=== PATIENT | female | born 1955 | race African-American/Black ===

== ENCOUNTER 2019-06-01 14:45 | Inpatient (IN) | payer OTHER ==
[2019-06-01 19:06] VITALS: BMI 34.2
--- NOTE | 2019-06-01 20:28 | HP ---
CIWA Score - Admission Criteria OASAS Guidelines: Admission for Medically Managed Detox: Requires at least one of the followin. CIWA greater than 12 2. Seizures within the past 24 hours 3. Delirium tremens within the past 24 hours 4. Hallucinations within the past 24 hours 5. Acute intervention needed for co occurring medical disorder 6. Acute intervention needed for co occurring psychiatric disorder 7. Severe withdrawal that cannot be handled at a lower level of care (continued vomiting, continued diarrhea, abnormal vital signs) requiring intravenous medication and/or fluids 8. Admission ROS S - HPI Chief Complaint: Seeking admission to Rehab Allergies/Adverse Reactions: Allergies Allergy/AdvReac Type Severity Reaction Status Date / Time butorphanol AdvReac Verified 06/01/19 18:51 History of Present Illness: 64 years old female is seeking admission to Rehab. Patient reports that she was at [facility] for 33 days for manic depression and was transferred to [facility] for Rehab. She denies suicidal and homicidal ideation at this time. She has left ear hearing loss and reports medical history of Hep. C, anemia, Seizure, Sickle cell trait and Diabetes Type 2. Her drug screen result was all negative. Exam Limitations: No Limitations - Ebola screening Have you traveled outside of the country in the last 21 days: No Have you had contact with anyone from an Ebola affected area: No Do you have a fever: No - Review of Systems Constitutional: No Symptoms Reported EENT: reports: No Symptoms Reported Respiratory: reports: No Symptoms reported Cardiac: reports: No Symptoms Reported GI: reports: No Symptoms Reported : reports: No Symptoms Reported Musculoskeletal: reports: No Symptoms Reported Integumentary: reports: No Symptoms Reported Neuro: reports: No Symptoms reported Endocrine: reports: No Symptoms Reported Hematology: reports: No Symptoms Reported Psychiatric: reports: No Sypmtoms Reported, Mood/Affect Appropiate Other Systems: Reviewed and Negative Patient History - Patient Medical History Hx Anemia: Yes (Not on medication) Hx Asthma: No Hx Chronic Obstructive Pulmonary Disease (COPD): No Hx Cancer: No Hx Cardiac Disorders: No Hx Congestive Heart Failure: No Hx Hypertension: No Hx Hypercholesterolemia: No HX Cerebrovascular Accident: No Hx Seizures: Yes (Alcohol related seizure. Not on medication) Hx Dementia: No Hx Diabetes: Yes Hx Gastrointestinal Disorders: No Hx Liver Disease: Yes (Hep C) Hx Genitourinary Disorders: No Hx Sexually Transmitted Disorders: No Hx Renal Disease (ESRD): No Hx Thyroid Disease: No Hx Human Immunodeficiency Virus (HIV): No Hx Hepatitis C: Yes (Not on medication) Hx Depression: No Hx Suicide Attempt: No (Denies suicidal ideation at this time) Hx Bipolar Disorder: No Hx Schizophrenia: No Other Medical History: Sickle cell trait, - Patient Surgical History Past Surgical History: Yes Hx Neurologic Surgery: No Hx Cataract Extraction: No Hx Cardiac Surgery: No Hx Lung Surgery: No Hx Breast Surgery: No Hx Breast Biopsy: No Hx Abdominal Surgery: No Hx Appendectomy: No Hx Cholecystectomy: No Hx Genitourinary Surgery: No Hx Section: No Hx Orthopedic Surgery: Yes (Left Elbow surgery 20 years ago) Hx Hysterectomy: No Anesthesia Reaction: No - PPD History Previous Implant?: Yes Documented Results: Negative w/o proof Implanted On Prior [facility] Admission?: No PPD to be Administered?: Yes - Reproductive History Patient is a Female of Child Bearing Age (11 -55 yrs old): Yes LMP comment: Menopausal Patient : No - Smoking Cessation Smoking history: Former smoker Have you smoked in the past 12 months: Yes Aproximately how many cigarettes per day: 40 Hx Chewing Tobacco Use: No Initiated information on smoking cessation: Yes 'Breaking Loose' booklet given: 06/01/19 - Substance & Tx. History Hx Alcohol Use: Yes Hx Substance Use: Yes Substance Use Type: Alcohol, Cocaine, Heroin, Marijuana Hx Substance Use Treatment: Yes ([facility], [facility]) - Substances abused Heroin Substance route: Inhalation Frequency: Daily Amount used: ' 2 bottles' as much as I could get' Age of first use: 14 Date of last use: 04/27/19 Cocaine Substance route: Smoking Frequency: 3-6 times per week Amount used: 2 grams Age of first use: 14 Date of last use: 04/27/19 Marijuana/Hashish Substance route: Smoking Frequency: Daily Amount used: 2 blunts Age of first use: 14 Date of last use: 04/27/19 Alcohol Substance route: Oral Frequency: Daily Amount used: 2 pints of vodka Age of first use: 14 Date of last use: 04/27/19 Admission Physical Exam BHS - Vital Signs Vital Signs: Vital Signs - 24 hr 06/01/19 18:47 Temperature 97.5 F L Pulse Rate 73 Respiratory 16 Rate Blood Pressure 128/89 - Physical General Appearance: Yes: Within Normal Limits HEENTM: Yes: Normal ENT Inspection, Normal Voice, JOSY Respiratory: Yes: Lungs Clear, Normal Breath Sounds, No Respiratory Distress Neck: Yes: Within Normal Limits Breast: Yes: Breast Exam Deferred Cardiology: Yes: Within Normal Limits, Regular Rhythm, Regular Rate Abdominal: Yes: Normal Bowel Sounds, Soft Genitourinary: Yes: Within Normal Limits Back: Yes: Normal Inspection Extremities: Yes: Normal Inspection, Normal Range of Motion Neurological: Yes: Within Normal Limits, Alert, Normal Mood/Affect Integumentary: Yes: Warm Lymphatic: Yes: Within Normal Limits - Diagnostic (1) Heroin dependence Current Visit: Yes Status: Chronic (2) Alcohol dependence Current Visit: Yes Status: Chronic Qualifiers: Substance use status: uncomplicated Qualified Code(s): F10.20 - Alcohol dependence, uncomplicated (3) Marijuana dependence Current Visit: Yes Status: Chronic (4) Cocaine dependence Current Visit: Yes Status: Chronic Qualifiers: Substance use status: uncomplicated Qualified Code(s): F14.20 - Cocaine dependence, uncomplicated (5) Hep C w/o coma, chronic Current Visit: Yes Status: Chronic (6) Sickle cell trait Current Visit: Yes Status: Chronic (7) DM (diabetes mellitus) Current Visit: Yes Status: Chronic Qualifiers: Diabetes mellitus type: type 2 (8) Alcohol related seizure Current Visit: Yes Status: Chronic (9) Anemia Current Visit: Yes Status: Chronic Qualifiers: Anemia type: iron deficiency (10) Left ear hearing loss Current Visit: Yes Status: Acute Cleared for Admission [facility] - Detox or Rehab [facility] Level of Care: Observation Bed Claeared for Rehab Admission: Yes Breathalyzer - Breathalyzer Breathalyzer: 0 Urine Drug Screen - Test Device Lot number: [id number] Expiration date: 01/19/21 - Control Is test valid?: Yes - Results Drug screen NEGATIVE: Yes Inpatient Rehab Admission - Rehab Decision to Admit Inpatient rehab admission?: Yes - Initial Determination Are CD services needed?: No Free of communicable disease: Yes Not in need of hospitalization: Yes - Rehab Admission Criteria Previous failed treatment: Yes Poor recovery environment: Yes Comorbidities: Yes Lacks judgement: No Patient is meeting Inpatient Rehab admission criteria:: Yes
[2019-06-01] MEDS ORDERED: guaiFENesin 200 MG/10 ML 10 ML UNIT-DOSE CUPS PO PRN (20:47)
[2019-06-01] MEDS ORDERED: P-EPHED 60MG/TRIPROLIDI 2.5MG TABLET PO PRN (20:47)
[2019-06-01] MEDS ORDERED: MAGNESIUM CITRATE 300 ML BOTTLE PO PRN (20:47)
[2019-06-01] MEDS ORDERED: MAG HYDROX/AL HYDROX/SIMETH 30 ML UNIT-DOSE CUP PO PRN (20:47)
[2019-06-01] MEDS ORDERED: ACETAMINOPHEN 325 MG TABLET (FP) PO PRN (20:47)
[2019-06-01] MEDS ORDERED: NICOTINE POLACRILEX 2 MG GUM BC PRN (20:47)
[2019-06-01] MEDS ORDERED: MENTHOL/PHENOL 1 EACH UD MM PRN (20:47)
[2019-06-01] MEDS ORDERED: MAGNESIUM HYDROX 2400MG/30ML ORAL SUSPENSION 30 ML CUP PO PRN (20:47)
[2019-06-01] MEDS ORDERED: IBUPROFEN 400 MG TABLET (FP) PO PRN (20:47)
[2019-06-01] MEDS ORDERED: LOPERAMIDE HCL 2 MG CAPSULE PO PRN (20:47)
[2019-06-01] MEDS ORDERED: MELATONIN 5 MG TABLETS PO PRN (22:00)
[2019-06-01] MEDS: THIAMINE HCL 100 MG TABLET (FP) PO SCH (22:49)
[2019-06-02] MEDS: PRENATAL VITAMINS W/ FOLIC ACID TABLET (FP) PO SCH (10:10)
[2019-06-02] MEDS: NICOTINE 14 MG/24 HOURS TOPICAL PATCH TD SCH (10:11)
[2019-06-02 13:41] LABS: EPI CELLS 0.5 /HPF (0-5/HPF); HYALINE CASTS 0 /lpf (0-8); URINE APPEARANCE CLEAR; URINE BACTERIA 9.6 /hpf (NEGATIVE); URINE BILIRUBIN NEGATIVE (NEGATIVE); URINE COLOR YELLOW; URINE GLUCOSE (UA) NEGATIVE (NEGATIVE); URINE KETONE NEGATIVE (NEGATIVE); URINE LEUK ESTERASE 1+ (NEGATIVE); URINE NITRITE NEGATIVE (NEGATIVE); URINE PROTEIN NEGATIVE (NEGATIVE); URINE RBC 1 /hpf (0-4); URINE UROBILINOGEN 0.2 mg/dL (0.2-1.0); URINE WBC 2 /hpf (0-5)
--- NOTE | 2019-06-02 18:08 | CONSULT ---
[facility] Psychiatric Consult - Data Date of interview: 06/02/19 Admission source: Transfer from [facility]. Identifying data: First [facility] visit and direct admission to [address] for this 64 y/o AA female, referred by [facility] at [place] (retained for 33 days on the psychiatric inpatient service) for rehabilitative care aiming at the preservation of sobriety (TISHA issues : opioid , alcohol, cannabis, cocaine, nicotine) + management of co-morbid schizoaffective disorder. Patient is single, a mother of one, homeless, unemployed and supported on SSI benefits. Substance Abuse History: Discussed in this session. Patient's information is concordant with current [facility] report as follows : Smoking history: Former smoker. Have you smoked in the past 12 months: Yes. Aproximately how many cigarettes per day: 40. Hx Chewing Tobacco Use: No. Initiated information on smoking cessation: Yes. 'Breaking Loose' booklet given: 06/01/19. - Substance & Tx. History. Hx Alcohol Use: Yes. Hx Substance Use: Yes. Substance Use Type: Alcohol, Cocaine, Heroin, Marijuana. Hx Substance Use Treatment: Yes ([facility], [facility]). - Substances abused. Heroin. Substance route: Inhalation. Frequency: Daily. Amount used: ' 2 bottles' as much as I could get'. Age of first use: 14. Date of last use: 04/27/19. Cocaine. Substance route: Smoking. Frequency: 3-6 times per week. Amount used: 2 grams. Age of first use: 14. Date of last use: 04/27/19. Marijuana/ Hashish. Substance route: Smoking. Frequency: Daily. Amount used: 2 blunts. Age of first use: 14. Date of last use: 04/27/19. Alcohol. Substance route : Oral. Frequency: Daily. Amount used: 2 pints of vodka. Age of first use: 14. Date of last use: 04/27/19 Medical History: Medical profile is remarkable for hepatits C, sickle cell trait , bronchial asthma, anemia, withdrawal-related seizures, hearing impediment ( left ear), diabetes mellitus and a distant history of orthosurgery (fracture of left elbow). Psychiatric History: Patient got just discharged from [facility] and directly transferred to [facility]. Ms Galvan endorses the diagnosis of Schizoaffective Disorder and current medications consisting of a regimen of seroquel 150 mg/hs + olanzapine 20 mg/bid + trazodone 200 mg/hs. Patient denies having prior contact with any psychiatric OPD care providers. " I get my medications from inpatient psychiatric wards." This is suggestive of a pattern of total disregard for OPD care and over-reliance on psychiatric inpatient services. Patient denies history of suicide attempts. Physical/Sexual Abuse/Trauma History: Not discussed in this session. Patient declines. Additional Comment: Drug screen is negative. Mental Status Exam - Mental Status Exam Alert and Oriented to: Time, Place, Person Cognitive Function: Good Patient Appearance: Well Groomed (obese, appearing stated age) Mood: Hopeful, Euthymic Affect: Appropriate, Normal Range Patient Behavior: Appropriate (friendly), Cooperative Speech Pattern: Clear, Appropriate Voice Loudness: Normal Thought Process: Goal Oriented Thought Disorder: Not Present Hallucinations: Denies Suicidal Ideation: Denies Homicidal Ideation: Denies Insight/Judgement: Poor Sleep: Well (on trazodone and seroquel at bedtime) Appetite: Good Gait/Station: Normal Psychiatric Findings - Problem List ([place] 1, 2,3) (1) Alcohol dependence Current Visit: Yes Status: Chronic Qualifiers: Substance use status: uncomplicated Qualified Code(s): F10.20 - Alcohol dependence, uncomplicated (2) Cocaine dependence Current Visit: Yes Status: Chronic Qualifiers: Substance use status: uncomplicated Qualified Code(s): F14.20 - Cocaine dependence, uncomplicated (3) Heroin dependence Current Visit: Yes Status: Chronic (4) Marijuana dependence Current Visit: Yes Status: Chronic (5) Nicotine dependence Current Visit: Yes Status: Chronic (6) Schizoaffective disorder Current Visit: Yes Status: Chronic (7) Insomnia Current Visit: Yes Status: Chronic - Initial Treatment Plan Initial Treatment Plan: Psychiatric evaluation conducted with a nurse in attendance (patient gave verbal permission). Psychoeducation. Sleep hygiene. Support. Motivational counseling provided in this session. AA/NA meetings. Groups. Medications reconciled. As follows : seroquel 100 mg po hs + trazodone 50 mg po hs + olanzapine 10 mg po hs (dose will be upgraded in AM after verification with referring source). Side effects/benefits discussed with patient. Informed consent (verbal) secured. Case will be endorsed to covering psychiatrist in the morning (verification of medications). Observation.
[2019-06-02] MEDS: THIAMINE HCL 100 MG TABLET (FP) PO SCH (21:22)
[2019-06-02] MEDS ORDERED: QUEtiapine FUMARATE 100 MG TABLET (FP) PO SCH (22:00)
[2019-06-02] MEDS ORDERED: traZODone HCL 50 MG TABLET (FP) PO SCH (22:00)
--- NOTE | 2019-06-03 08:39 | EKG ---
Test Reason : Blood Pressure : / mmHG Vent. Rate : 066 BPM Atrial Rate : 066 BPM P-R Int : 192 ms QRS Dur : 084 ms QT Int : 432 ms P-R-T Axes : 062 039 056 degrees QTc Int : 452 ms NORMAL SINUS RHYTHM NORMAL ECG NO PREVIOUS ECGS AVAILABLE Confirmed by Akilah Lind ([id number]) on 06/03/2019 8:39:09 AM Referred By: MICHAEL KING Confirmed By:Akilah Lind
[2019-06-03] MEDS: PRENATAL VITAMINS W/ FOLIC ACID TABLET (FP) PO SCH (10:07)
[2019-06-03] MEDS: NICOTINE 14 MG/24 HOURS TOPICAL PATCH TD SCH (10:07)
[2019-06-03 10:27] LABS: ALBUMIN 3.7 g/dl (3.4-5.0); BILIRUBIN,TOTAL 0.5 mg/dL (0.2-1); BLOOD UREA NITROGEN 20.5 mg/dL (7-18); CALCIUM 8.9 mg/dL (8.5-10.1); CREATININE 0.9 mg/dL (0.55-1.3); POTASSIUM 4.1 mmol/L (3.5-5.1); TOT PROT 7.3 g/dl (6.4-8.2)
[2019-06-03 10:29] LABS: HEMATOCRIT 36.7 % (32.4-45.2); HEMOGLOBIN 12.3 GM/dL (10.7-15.3); MCHC 33.5 g/dl (32.0-36.0); MEAN CELL VOLUME 89.5 fl (80-96); MEAN PLT VOLUME 8.1 fl (7.5-11.1); PLATELET COUNT 160 K/MM3 (134-434); RDW 15.2 % (11.6-15.6); WHITE BLOOD COUNT 3.2 K/mm3 (4.0-10.0)
--- NOTE | 2019-06-03 15:41 | PN ---
Psychiatric Progress Note Vital Signs: Vital Signs Period Temp Pulse Resp BP Sys/Ramírez Pulse Ox Last 24 Hr 97.8 F 75-85 - 99-115/68-78 Date of Session: 06/03/19 Chief Complaint:: Medication adjustment HPI: Patient admitted to for opioid, alcohol, cannabis, cocaine, nicotine dependence. ROS: Patient is coherent, alert + oriented X3. Current Medications: Active Medications Generic Name Dose Route Start Last Admin Trade Name Freq PRN Reason Stop Dose Admin Acetaminophen 650 mg 06/01/19 20:47 Tylenol - PO Q4H PRN FEVER Al Hydroxide/Mg Hydroxide 30 ml 06/01/19 20:47 Mylanta Oral Suspension - PO Q6H PRN DYSPEPSIA Eucalyptus/Menthol/Phenol/Sorbitol 1 each 06/01/19 20:47 Cepastat Lozenge - MM Q4H PRN SORE THROAT Guaifenesin 10 ml 06/01/19 20:47 Robitussin - PO Q6H PRN COUGH Ibuprofen 400 mg 06/01/19 20:47 Motrin - PO Q6H PRN Pain level 4-6 Loperamide HCl 4 mg 06/01/19 20:47 Imodium - PO Q6H PRN DIARRHEA Magnesium Citrate 300 ml 06/01/19 20:47 Citroma - PO Q48H PRN CONSTIPATION Magnesium Hydroxide 30 ml 06/01/19 20:47 Milk Of Magnesia - PO DAILY PRN CONSTIPATION Melatonin 5 mg 06/01/19 22:00 Melatonin PO HS PRN INSOMNIA Nicotine 14 mg 06/02/19 10:00 06/03/19 10:07 Nicoderm Patch - TD Not Given DAILY HELEN Nicotine Polacrilex 2 mg 06/01/19 20:47 Nicorette Gum - BC Q2H PRN NICOTINE REPLACEMENT RX Multivit/Folic Acid/Iron 1 tab 06/02/19 10:00 06/03/19 10:07 Vitamins (Sjr) - PO 1 tab DAILY HELEN Administration Pseudoephedrine/Triprolidine 1 combo 06/01/19 20:47 Actifed - PO TID PRN NASAL CONGESTION Quetiapine Fumarate 100 mg 06/02/19 22:00 06/02/19 21:23 Seroquel - PO 100 mg HS HELEN Administration Thiamine HCl 100 mg 06/01/19 22:00 06/02/19 21:22 Vitamin B1 - PO 100 mg HS HELEN Administration Trazodone HCl 50 mg 06/02/19 22:00 06/02/19 21:23 Desyrel - PO 50 mg HS HELEN Administration Medication(s) Change(s): Yes. Current Side Effect: No Lab tests ordered: No Lab tests reviewed: Yes Provider note:: Patient calm, cooperated, alert +oriented X3. Patient with a diagnosis of schizoaffective disorder who was directly transferred to [facility] from [facility] in [place]. Patient seen by Dr. Lala on and ordered Zyprexa 10mg + Seroquel 100mg + trazdone 50mg. As per Dr. Lala note, patient stated that her medication regiman consisted of Seroquel 100mg + zyprexa 20mg BID + trazodone 50mg HS. Supercharger Mechanic attempted to contact [facility] s pharmacy at [phone] but attempt was unsuccessful. Supercharger Mechanic then discussed case with Charge Nurse who provided patient with patient's medication list that was sent from [facility]. As per [facility] Medications profile report patient was seen by Dr. Daniel and was discharged with Wellbutrin 300mg XL + Trazodone 100mg HS + Olanzapine ODT 20mg . Supercharger Mechanic discussed medications changes with contract technical writer. Patient in agreement with contract technical writer. Patient reports stable mood and adeqate sleep last night. Patient denies auditory/visual , suicidal/homicidal ideation. Medications to be adjusted. Will d/c seroquel 100mg and trazodone 50mg HS. Will order Wellbutrin 300mg XL + Trazodone 100mg + Zyprexa 20mg HS. Total face to face time:: 30 Mental Status Exam - Mental Status Exam Alert and Oriented to: Time, Place, Person Cognitive Function: Good Patient Appearance: Well Groomed Mood: Euthymic Affect: Mood Congruent Patient Behavior: Cooperative Speech Pattern: Appropriate Voice Loudness: Normal Thought Process: Goal Oriented Thought Disorder: Not Present Hallucinations: Denies Suicidal Ideation: Denies Homicidal Ideation: Denies Insight/Judgement: Poor Sleep: Fair Appetite: Fair Muscle strength/Tone: Normal Gait/Station: Normal Psychiatric Treatment Plan - Problem List (1) Alcohol dependence Current Visit: Yes Qualifiers: Substance use status: uncomplicated Qualified Code(s): F10.20 - Alcohol dependence, uncomplicated (2) Cocaine dependence Current Visit: Yes Qualifiers: Substance use status: uncomplicated Qualified Code(s): F14.20 - Cocaine dependence, uncomplicated (3) Heroin dependence Current Visit: Yes (4) Insomnia Current Visit: Yes (5) Marijuana dependence Current Visit: Yes (6) Nicotine dependence Current Visit: Yes (7) Schizoaffective disorder Current Visit: Yes
[2019-06-03] MEDS: THIAMINE HCL 100 MG TABLET (FP) PO SCH (21:26)
[2019-06-03] MEDS: OLANZapine 10 MG TABLET PO SCH (21:27)
[2019-06-03] MEDS: traZODone HCL 100 MG TABLET (FP) PO SCH (21:27)
[2019-06-03] MEDS ORDERED: traZODone HCL 50 MG TABLET (FP) PO SCH (22:00)
[2019-06-03] MEDS ORDERED: OLANZapine 7.5 MG TABLET PO SCH (22:00)
[2019-06-04] MEDS: PRENATAL VITAMINS W/ FOLIC ACID TABLET (FP) PO SCH (10:13)
[2019-06-04] MEDS: NICOTINE 14 MG/24 HOURS TOPICAL PATCH TD SCH (10:13)
[2019-06-04] MEDS: traZODone HCL 100 MG TABLET (FP) PO SCH (21:12)
[2019-06-04] MEDS: THIAMINE HCL 100 MG TABLET (FP) PO SCH (21:12)
[2019-06-04] MEDS: OLANZapine 10 MG TABLET PO SCH (21:12)
[2019-06-05] MEDS: PRENATAL VITAMINS W/ FOLIC ACID TABLET (FP) PO SCH (09:32)
[2019-06-05] MEDS: NICOTINE 14 MG/24 HOURS TOPICAL PATCH TD SCH (09:32)
[2019-06-05] MEDS: OLANZapine 10 MG TABLET PO SCH (21:08)
[2019-06-05] MEDS: THIAMINE HCL 100 MG TABLET (FP) PO SCH (21:09)
[2019-06-05] MEDS: traZODone HCL 100 MG TABLET (FP) PO SCH (21:09)
[2019-06-06] MEDS: PRENATAL VITAMINS W/ FOLIC ACID TABLET (FP) PO SCH (09:50)
[2019-06-06] MEDS: NICOTINE 14 MG/24 HOURS TOPICAL PATCH TD SCH (09:51)
[2019-06-06] MEDS: THIAMINE HCL 100 MG TABLET (FP) PO SCH (21:36)
[2019-06-06] MEDS: traZODone HCL 100 MG TABLET (FP) PO SCH (21:36)
[2019-06-06] MEDS: OLANZapine 10 MG TABLET PO SCH (21:36)
[2019-06-07] MEDS: NICOTINE 14 MG/24 HOURS TOPICAL PATCH TD SCH (09:48)
[2019-06-07] MEDS: PRENATAL VITAMINS W/ FOLIC ACID TABLET (FP) PO SCH (09:48)
--- NOTE | 2019-06-07 14:36 | PN ---
[facility] Progress Note Note: Pt requesting to decrease BGM frequency to once a day. BGM does not appear to be out of control values. Pt reports she was on Glucophage twenty years ago but has not had any medication for diabetes since then. Pt reports daily blood sugar checks at home but not on med. Pt is not on diabetic medication on this admission. No meds posted on outside pharmacy site. Pt reports she has a PCP Dr. Bryon Guzmán at [place], [place]. Vital Signs 06/07/19 07:02 Temperature 97.8 F Pulse Rate 66 Respiratory 18 Rate Blood Pressure 134/86 Laboratory Tests 06/02/19 06/03/19 06/03/19 08:20 07:40 07:40 WBC RBC Hgb Hct MCV MCH MCHC RDW Plt Count MPV Sodium 140 Potassium 4.1 Chloride 108 H Carbon Dioxide 26 Anion Gap 6 L BUN 20.5 H Creatinine 0.9 Est GFR (CKD-EPI)AfAm 78.32 Est GFR (CKD-EPI)NonAf 67.57 POC Glucometer Random Glucose 140 H Calcium 8.9 Total Bilirubin 0.5 AST 35 ALT 53 Alkaline Phosphatase 66 Total Protein 7.3 Albumin 3.7 Urine Color Yellow Urine Appearance Clear Urine pH 6.0 Ur Specific [place] 1.017 Urine Protein Negative Urine Glucose (UA) Negative Urine Ketones Negative Urine Blood Negative Urine Nitrite Negative Urine Bilirubin Negative Urine Urobilinogen 0.2 Ur Leukocyte Esterase 1+ H Urine WBC (Auto) 2 Urine RBC (Auto) 1 Urine Casts (Auto) 0 U Epithel Cells (Auto) 0.5 Urine Bacteria (Auto) 9.6 RPR Titer Nonreactive 06/03/19 06/04/19 06/05/19 07:49 17:13 07:21 WBC 3.2 L RBC 4.10 Hgb 12.3 Hct 36.7 MCV 89.5 MCH 30.0 MCHC 33.5 RDW 15.2 Plt Count 160 MPV 8.1 Sodium Potassium Chloride Carbon Dioxide Anion Gap BUN Creatinine Est GFR (CKD-EPI)AfAm Est GFR (CKD-EPI)NonAf POC Glucometer 102 136 Random Glucose Calcium Total Bilirubin AST ALT Alkaline Phosphatase Total Protein Albumin Urine Color Urine Appearance Urine pH Ur Specific [place] Urine Protein Urine Glucose (UA) Urine Ketones Urine Blood Urine Nitrite Urine Bilirubin Urine Urobilinogen Ur Leukocyte Esterase Urine WBC (Auto) Urine RBC (Auto) Urine Casts (Auto) U Epithel Cells (Auto) Urine Bacteria (Auto) RPR Titer 06/05/19 06/06/19 06/06/19 16:53 06:37 17:04 WBC RBC Hgb Hct MCV MCH MCHC RDW Plt Count MPV Sodium Potassium Chloride Carbon Dioxide Anion Gap BUN Creatinine Est GFR (CKD-EPI)AfAm Est GFR (CKD-EPI)NonAf POC Glucometer 130 94 82 Random Glucose Calcium Total Bilirubin AST ALT Alkaline Phosphatase Total Protein Albumin Urine Color Urine Appearance Urine pH Ur Specific [place] Urine Protein Urine Glucose (UA) Urine Ketones Urine Blood Urine Nitrite Urine Bilirubin Urine Urobilinogen Ur Leukocyte Esterase Urine WBC (Auto) Urine RBC (Auto) Urine Casts (Auto) U Epithel Cells (Auto) Urine Bacteria (Auto) RPR Titer 06/07/19 06:44 WBC RBC Hgb Hct MCV MCH MCHC RDW Plt Count MPV Sodium Potassium Chloride Carbon Dioxide Anion Gap BUN Creatinine Est GFR (CKD-EPI)AfAm Est GFR (CKD-EPI)NonAf POC Glucometer 78 Random Glucose Calcium Total Bilirubin AST ALT Alkaline Phosphatase Total Protein Albumin Urine Color Urine Appearance Urine pH Ur Specific [place] Urine Protein Urine Glucose (UA) Urine Ketones Urine Blood Urine Nitrite Urine Bilirubin Urine Urobilinogen Ur Leukocyte Esterase Urine WBC (Auto) Urine RBC (Auto) Urine Casts (Auto) U Epithel Cells (Auto) Urine Bacteria (Auto) RPR Titer Alert o x 3 nad oob ambulating with steady gait. A/P Hx DM- diet controlled Pt reports PCP Dr. Bryon Guzmán @ [place], [place]. Pt will follow up with PCP after discharge from rehab.
[2019-06-07] MEDS: OLANZapine 10 MG TABLET PO SCH (21:45)
[2019-06-07] MEDS: THIAMINE HCL 100 MG TABLET (FP) PO SCH (21:45)
[2019-06-07] MEDS: traZODone HCL 100 MG TABLET (FP) PO SCH (21:45)
[2019-06-08] MEDS: PRENATAL VITAMINS W/ FOLIC ACID TABLET (FP) PO SCH (09:46)
[2019-06-08] MEDS: NICOTINE 14 MG/24 HOURS TOPICAL PATCH TD SCH (09:47)
[2019-06-08] MEDS: traZODone HCL 100 MG TABLET (FP) PO SCH (21:46)
[2019-06-08] MEDS: THIAMINE HCL 100 MG TABLET (FP) PO SCH (21:46)
[2019-06-08] MEDS: OLANZapine 10 MG TABLET PO SCH (21:47)
[2019-06-09] MEDS: NICOTINE 14 MG/24 HOURS TOPICAL PATCH TD SCH (09:36)
[2019-06-09] MEDS: PRENATAL VITAMINS W/ FOLIC ACID TABLET (FP) PO SCH (09:36)
[2019-06-09] MEDS: traZODone HCL 100 MG TABLET (FP) PO SCH (21:46)
[2019-06-09] MEDS: THIAMINE HCL 100 MG TABLET (FP) PO SCH (21:46)
[2019-06-09] MEDS: OLANZapine 10 MG TABLET PO SCH (21:46)
[2019-06-10] MEDS: PRENATAL VITAMINS W/ FOLIC ACID TABLET (FP) PO SCH (10:10)
[2019-06-10] MEDS: NICOTINE 14 MG/24 HOURS TOPICAL PATCH TD SCH (10:11)
[2019-06-10] MEDS: THIAMINE HCL 100 MG TABLET (FP) PO SCH (21:50)
[2019-06-10] MEDS: traZODone HCL 100 MG TABLET (FP) PO SCH (21:50)
[2019-06-10] MEDS: OLANZapine 10 MG TABLET PO SCH (21:50)
[2019-06-11] MEDS: NICOTINE 14 MG/24 HOURS TOPICAL PATCH TD SCH (10:11)
[2019-06-11] MEDS: PRENATAL VITAMINS W/ FOLIC ACID TABLET (FP) PO SCH (10:11)
[2019-06-11] MEDS: THIAMINE HCL 100 MG TABLET (FP) PO SCH (21:18)
[2019-06-11] MEDS: OLANZapine 10 MG TABLET PO SCH (21:18)
[2019-06-11] MEDS: traZODone HCL 100 MG TABLET (FP) PO SCH (21:18)
[2019-06-12] MEDS: PRENATAL VITAMINS W/ FOLIC ACID TABLET (FP) PO SCH (10:22)
[2019-06-12] MEDS: NICOTINE 14 MG/24 HOURS TOPICAL PATCH TD SCH (10:22)
[2019-06-12] MEDS: THIAMINE HCL 100 MG TABLET (FP) PO SCH (21:48)
[2019-06-12] MEDS: traZODone HCL 100 MG TABLET (FP) PO SCH (21:48)
[2019-06-12] MEDS: OLANZapine 10 MG TABLET PO SCH (21:48)
[2019-06-13] MEDS: PRENATAL VITAMINS W/ FOLIC ACID TABLET (FP) PO SCH (10:14)
[2019-06-13] MEDS: NICOTINE 14 MG/24 HOURS TOPICAL PATCH TD SCH (10:15)
[2019-06-13] MEDS: THIAMINE HCL 100 MG TABLET (FP) PO SCH (21:27)
[2019-06-13] MEDS: traZODone HCL 100 MG TABLET (FP) PO SCH (21:27)
[2019-06-13] MEDS: OLANZapine 10 MG TABLET PO SCH (21:27)
[2019-06-14] MEDS: PRENATAL VITAMINS W/ FOLIC ACID TABLET (FP) PO SCH (10:09)
[2019-06-14] MEDS: NICOTINE 14 MG/24 HOURS TOPICAL PATCH TD SCH (10:10)
--- NOTE | 2019-06-14 13:56 | DS ---
[facility] Rehab Discharge Summary - [facility] Rehab Discharge Summary Admission Date: 06/01/19 Discharge Date: 06/15/19 - History Present History: Alcohol dependence, Cannabis dependence, Cocaine dependence, Opioid dependence Additional Comments: Pt is a 64 y/o female with a hx of TISHA admitted to rehab and scheduled for discharge on 06/15/19. Pt has been referred to CD aftercare at [facility] in [place], [place]. Pt reports she has a pcp Dr. Bryon Wheat for medical management. Pertinent Past History: Anemia DM(no meds,diet controlled) Hep C Sickle Cell Trait Schizophrenia - Discharge Physical Exam Vital Signs: Vital Signs Temperature 97.8 F 06/14/19 07:11 Pulse Rate 80 06/14/19 07:11 Respiratory Rate 18 06/14/19 07:11 Blood Pressure 121/83 06/14/19 07:11 O2 Sat by Pulse Oximetry (%) Alert o x 3 nad oob ambulating with steady gait cardiac:s1 s2,rrr lungs;cta,dianna. abdomen:soft,+bs,nt,nd extremities/skin:no edema,full ROM,skin intact. Pertinent Admission Physical Exam Findings: Laboratory Tests 06/02/19 06/03/19 06/03/19 08:20 07:40 07:40 WBC RBC Hgb Hct MCV MCH MCHC RDW Plt Count MPV Sodium 140 Potassium 4.1 Chloride 108 H Carbon Dioxide 26 Anion Gap 6 L BUN 20.5 H Creatinine 0.9 Est GFR (CKD-EPI)AfAm 78.32 Est GFR (CKD-EPI)NonAf 67.57 POC Glucometer Random Glucose 140 H Calcium 8.9 Total Bilirubin 0.5 AST 35 ALT 53 Alkaline Phosphatase 66 Total Protein 7.3 Albumin 3.7 Urine Color Yellow Urine Appearance Clear Urine pH 6.0 Ur Specific [place] 1.017 Urine Protein Negative Urine Glucose (UA) Negative Urine Ketones Negative Urine Blood Negative Urine Nitrite Negative Urine Bilirubin Negative Urine Urobilinogen 0.2 Ur Leukocyte Esterase 1+ H Urine WBC (Auto) 2 Urine RBC (Auto) 1 Urine Casts (Auto) 0 U Epithel Cells (Auto) 0.5 Urine Bacteria (Auto) 9.6 RPR Titer Nonreactive 06/03/19 06/04/19 06/05/19 07:49 17:13 07:21 WBC 3.2 L RBC 4.10 Hgb 12.3 Hct 36.7 MCV 89.5 MCH 30.0 MCHC 33.5 RDW 15.2 Plt Count 160 MPV 8.1 Sodium Potassium Chloride Carbon Dioxide Anion Gap BUN Creatinine Est GFR (CKD-EPI)AfAm Est GFR (CKD-EPI)NonAf POC Glucometer 102 136 Random Glucose Calcium Total Bilirubin AST ALT Alkaline Phosphatase Total Protein Albumin Urine Color Urine Appearance Urine pH Ur Specific [place] Urine Protein Urine Glucose (UA) Urine Ketones Urine Blood Urine Nitrite Urine Bilirubin Urine Urobilinogen Ur Leukocyte Esterase Urine WBC (Auto) Urine RBC (Auto) Urine Casts (Auto) U Epithel Cells (Auto) Urine Bacteria (Auto) RPR Titer 06/05/19 06/06/19 06/06/19 16:53 06:37 17:04 WBC RBC Hgb Hct MCV MCH MCHC RDW Plt Count MPV Sodium Potassium Chloride Carbon Dioxide Anion Gap BUN Creatinine Est GFR (CKD-EPI)AfAm Est GFR (CKD-EPI)NonAf POC Glucometer 130 94 82 Random Glucose Calcium Total Bilirubin AST ALT Alkaline Phosphatase Total Protein Albumin Urine Color Urine Appearance Urine pH Ur Specific [place] Urine Protein Urine Glucose (UA) Urine Ketones Urine Blood Urine Nitrite Urine Bilirubin Urine Urobilinogen Ur Leukocyte Esterase Urine WBC (Auto) Urine RBC (Auto) Urine Casts (Auto) U Epithel Cells (Auto) Urine Bacteria (Auto) RPR Titer 06/07/19 06/07/19 06/08/19 06:44 16:58 07:21 WBC RBC Hgb Hct MCV MCH MCHC RDW Plt Count MPV Sodium Potassium Chloride Carbon Dioxide Anion Gap BUN Creatinine Est GFR (CKD-EPI)AfAm Est GFR (CKD-EPI)NonAf POC Glucometer 78 67 91 Random Glucose Calcium Total Bilirubin AST ALT Alkaline Phosphatase Total Protein Albumin Urine Color Urine Appearance Urine pH Ur Specific [place] Urine Protein Urine Glucose (UA) Urine Ketones Urine Blood Urine Nitrite Urine Bilirubin Urine Urobilinogen Ur Leukocyte Esterase Urine WBC (Auto) Urine RBC (Auto) Urine Casts (Auto) U Epithel Cells (Auto) Urine Bacteria (Auto) RPR Titer 06/09/19 06/10/19 06/11/19 07:14 06:40 06:45 WBC RBC Hgb Hct MCV MCH MCHC RDW Plt Count MPV Sodium Potassium Chloride Carbon Dioxide Anion Gap BUN Creatinine Est GFR (CKD-EPI)AfAm Est GFR (CKD-EPI)NonAf POC Glucometer 96 100 99 Random Glucose Calcium Total Bilirubin AST ALT Alkaline Phosphatase Total Protein Albumin Urine Color Urine Appearance Urine pH Ur Specific [place] Urine Protein Urine Glucose (UA) Urine Ketones Urine Blood Urine Nitrite Urine Bilirubin Urine Urobilinogen Ur Leukocyte Esterase Urine WBC (Auto) Urine RBC (Auto) Urine Casts (Auto) U Epithel Cells (Auto) Urine Bacteria (Auto) RPR Titer 06/12/19 06/13/19 06/14/19 06:54 06:31 06:39 WBC RBC Hgb Hct MCV MCH MCHC RDW Plt Count MPV Sodium Potassium Chloride Carbon Dioxide Anion Gap BUN Creatinine Est GFR (CKD-EPI)AfAm Est GFR (CKD-EPI)NonAf POC Glucometer 102 88 91 Random Glucose Calcium Total Bilirubin AST ALT Alkaline Phosphatase Total Protein Albumin Urine Color Urine Appearance Urine pH Ur Specific [place] Urine Protein Urine Glucose (UA) Urine Ketones Urine Blood Urine Nitrite Urine Bilirubin Urine Urobilinogen Ur Leukocyte Esterase Urine WBC (Auto) Urine RBC (Auto) Urine Casts (Auto) U Epithel Cells (Auto) Urine Bacteria (Auto) RPR Titer Pt will follow up with pcp with copy of lab results for medical management. - Treatment Discharge Condition: Discharge condition good - Medication Discharge Medications: Ambulatory Orders Quetiapine Fumarate [Seroquel -] 150 mg PO HS 06/01/19 Bupropion HCl [Wellbutrin Xl] 300 mg PO DAILY #30 tab.er.24h 06/14/19 Olanzapine [Zyprexa] 20 mg PO HS #30 tablet 06/14/19 traZODone HCL [Desyrel -] 100 mg PO HS #30 tablet 06/14/19 - Medication-Assisted Treatment (MAT) Medication-Assisted Treatment (MAT): No - Discharge Instructions Diet, activity, other medical instructions: Diet:NCS Activity: oob ad terry Other medical instructions:Follow up with CD aftercare at [facility] on [address] [place] [address] as scheduled. Follow up with PCP within 1-2 weeks after discharge as below: PCP: Dr Bryon Wheat [place], [place] - Diagnosis (1) Left ear hearing loss Status: Chronic Qualifiers: Contralateral hearing status: unspecified (2) Alcohol dependence Status: Chronic Qualifiers: Substance use status: uncomplicated Qualified Code(s): F10.20 - Alcohol dependence, uncomplicated (3) Alcohol related seizure Status: Chronic (4) Cocaine dependence Status: Chronic Qualifiers: Substance use status: uncomplicated Qualified Code(s): F14.20 - Cocaine dependence, uncomplicated (5) DM (diabetes mellitus) Status: Chronic Qualifiers: Diabetes mellitus type: type 2 (6) Hep C w/o coma, chronic Status: Chronic (7) Heroin dependence Status: Chronic (8) Marijuana dependence Status: Chronic (9) Nicotine dependence Status: Chronic Qualifiers: Nicotine product type: cigarettes Substance use status: uncomplicated Qualified Code(s): F17.210 - Nicotine dependence, cigarettes, uncomplicated - Follow-up Referral Minutes to complete discharge: 20 - AMA Did Patient Leave Against Medical Advice: No
--- NOTE | 2019-06-14 15:10 | PN ---
[facility] Progress Note Note: Patient is scheduled for discharge tomorrow. Scripts for 30 days supply of medications(Wellbutrin XL 300 mg/day, Trazadone 100 mg/hs, Zyprexa 20 mg/hs) will be electronically transmitted to [facility] at [address] [place] [address]
[2019-06-14] MEDS: THIAMINE HCL 100 MG TABLET (FP) PO SCH (21:22)
[2019-06-14] MEDS: OLANZapine 10 MG TABLET PO SCH (21:22)
[2019-06-14] MEDS: traZODone HCL 100 MG TABLET (FP) PO SCH (21:22)
[2019-06-15 07:08] VITALS: BP 131/87; PULSE 64; TEMP 98.1
[2019-06-15] MEDS: PRENATAL VITAMINS W/ FOLIC ACID TABLET (FP) PO SCH (09:36)
[2019-06-15] MEDS: NICOTINE 14 MG/24 HOURS TOPICAL PATCH TD SCH (09:36)
--- NOTE | 2019-06-15 10:46 | PN ---
[facility] Progress Note Note: Pt is discharged as scheduled. Alert o x 3,nad,well groomed oob with steady gait. Vital Signs - 24 hr 06/15/19 06/15/19 06/15/19 00:30 03:30 07:07 Temperature 98.1 F Pulse Rate 64 Respiratory 18 18 18 Rate Blood Pressure 131/87 Please see Rehab Discharge Summary
== END 2019-06-15 09:45 | disposition home or self-care (01) | DRG 772 ==
LOC: YASAS 14:45 → Y3E 21:30
PROVIDERS: ADMIT Neuromusculoskeletal Medicine & OMM; ATTEND Neuromusculoskeletal Medicine & OMM
PROC: HZ42ZZZ Group Counseling for Substance Abuse Treatment, Cognitive-Behavioral (ICD-10-PCS; principal; 2019-06-01)
DX: F11.20 Opioid dependence, uncomplicated (principal); F10.20 Alcohol dependence, uncomplicated; F14.20 Cocaine dependence, uncomplicated; F12.20 Cannabis dependence, uncomplicated; F17.210 Nicotine dependence, cigarettes, uncomplicated; F25.9 Schizoaffective disorder, unspecified; G47.00 Insomnia, unspecified; D64.9 Anemia, unspecified; D57.3 Sickle-cell trait; E11.9 Type 2 diabetes mellitus without complications; B18.2 Chronic viral hepatitis C; H91.92 Unspecified hearing loss, left ear; G40.509 Epileptic seizures related to external causes, not intractable, without status epilepticus; Z88.8 Allergy status to other drugs, medicaments and biological substances
CPT/HCPCS: 36415; 80053; 81003; 82962; 85027; 86593; 93005; 93010